=== PATIENT | female | born 1980 | race Caucasian/White ===

== ENCOUNTER 2018-02-11 22:11 | Emergency (ER) | payer SELFPAY ==
[2018-02-11 22:16] VITALS: BP 159/96
--- NOTE | 2018-02-12 13:17 | EDM.PDOC ---
ED HPI GENERAL MEDICAL PROBLEM - General Chief Complaint: ENT Problem Stated Complaint: nosebleed Time Seen by Provider: 02/11/18 22:25 Source of Information: Reports: Patient History Limitations: Reports: No Limitations - History of Present Illness INITIAL COMMENTS - FREE TEXT/NARRATIVE: PtEdward developed onset of epistaxis from both nares. Denies any trauma. She states that she has been experiencing issues with epistaxis more recently lately, but states that it stops on its own. Bleeding has been present over the past 45 min. 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: Musculoskeletal History: Reports: Back Pain, Chronic, Neck Pain, Chronic Psychiatric History: Reports: ADD, Anxiety, Depression Oncologic (Cancer) History: Reports: Hodgkin's Lymphoma Dermatologic History: Reports: Other (See Below) Other Dermatologic History: staff infection on back of head and upper neck Social & Family History - Family History Family Medical History: Noncontributory - Tobacco Use Smoking Status *Q: Former Smoker Used Tobacco, but Quit: Yes Month/Year Tobacco Last Used: 4 - Caffeine Use Caffeine Use: Reports: Coffee Other Caffeine Use: 2-3 cups daily ED ROS GENERAL - Review of Systems Review Of Systems: See Below Constitutional: Reports: No Symptoms HEENT: Reports: Nosebleed Respiratory: Reports: No Symptoms Cardiovascular: Reports: No Symptoms Endocrine: Reports: No Symptoms GI/Abdominal: Reports: No Symptoms : Reports: No Symptoms Musculoskeletal: Reports: No Symptoms Skin: Reports: No Symptoms Neurological: Reports: No Symptoms Psychiatric: Reports: No Symptoms Hematologic/Lymphatic: Reports: No Symptoms Immunologic: Reports: No Symptoms ED EXAM, GENERAL - Physical Exam Exam: See Below Exam Limited By: No Limitations General Appearance: Alert, WD/WN, No Apparent Distress Nose: Other (No active bleeding noted. small area of previous bleeding noted in L nare was cauterized with silver nitrate.) Head: Atraumatic, Normocephalic Neck: Normal Inspection, Supple, Non-Tender, Full Range of Motion Respiratory/Chest: No Respiratory Distress, Lungs Clear, Normal Breath Sounds, No Accessory Muscle Use, Chest Non-Tender Cardiovascular: Normal Peripheral Pulses, Regular Rate, Rhythm, No Edema, No Gallop, No JVD, No Murmur, No Rub Course - Vital Signs Last Recorded V/S: Last Vital Signs Temp 36.8 C 02/11/18 22:15 Pulse 89 02/11/18 22:15 Resp 20 02/11/18 22:15 BP 159/96 H 02/11/18 22:15 Pulse Ox 98 02/11/18 22:15 Departure - Departure Time of Disposition: 23:15 Disposition: Home, Self-Care 01 Condition: Good Clinical Impression: Epistaxis - Discharge Information Instructions: Nosebleed, Adult Referrals: Chary Mccartney BODY SPECIALIST [Primary Care Provider] - Forms: ED Department Discharge Additional Instructions: If you are continuing to have nosebleeds, follow-up in clinic for referral to ENT. Return to ER if you have any recurrence of your bleeding tonight that does not stop in 30 min. - Assessment/Plan Plan: If you are continuing to have nosebleeds, follow-up in clinic for referral to ENT. Return to ER if you have any recurrence of your bleeding tonight that does not stop in 30 min.
== END 2018-02-11 22:25 | disposition home or self-care (01) ==
LOC: VM.ED 22:11
DX: R04.0 Epistaxis (principal); Z87.891 Personal history of nicotine dependence
CPT/HCPCS: 30901; 30905; 99283; 99283-GF-25

== ENCOUNTER 2022-10-23 11:56 | Emergency (ER) | payer BC, MEDICAID ==
[2022-10-23] MEDS ORDERED: Take Home: Acetaminophen/Codeine 300 MG/30 MG, 5 Tab Pack PO ONE (12:28)
[2022-10-23] MEDS ORDERED: Take Home: Amoxicillin/Clavulanate K 875-125 MG Tab, 2 Tab Pack PO ONE (12:28)
[2022-10-23] MEDS ORDERED: valACYclovir 1,000 MG Tab PO SCH (13:00)
[2022-10-23 20:25] VITALS: BP 127/84; PULSE 92
== END 2022-10-23 12:40 | disposition home or self-care (01) ==
LOC: VM.ED 11:56
CPT/HCPCS: 99283; A9270

== ENCOUNTER 2023-03-12 09:17 | Emergency (ER) | payer MEDICAID ==
[2023-03-12] MEDS ORDERED: Sodium Chloride 0.9% 10 ML Syringe FLUSH PRN (09:40)
[2023-03-12] MEDS ORDERED: Lidocaine 1% 30 ML SDV INJECT ONE (09:50)
[2023-03-12] MEDS ORDERED: cefTRIAXone 2 GM Vial IVPUSH ONE (09:53)
[2023-03-12 10:05] LABS: HEMATOCRIT 42.5 % (33.0-47.0); HEMOGLOBIN 14.2 g/dL (12.0-16.0); MEAN CORPUSCULAR HEMOGLOBIN 28.9 pg (26.0-32.0); MEAN CORPUSCULAR HGB CONC 33.4 g/dL (32.0-36.0); MEAN CORPUSCULAR VOLUME 86.4 fL (78.0-93.0); PLATELET COUNT,PLT 438 x10^3/uL (130-400); RED BLOOD CELL COUNT 4.92 x10^6/uL (4.00-5.50)
[2023-03-12 10:09] LABS: WHITE BLOOD CELL COUNT,WBC 21.8 x10^3/uL (4.0-10.0)
[2023-03-12] MEDS ORDERED: cefTRIAXone 1 GM Vial IVPUSH ONE (10:11)
[2023-03-12 10:27] LABS: LACTIC ACID 1.4 mmol/L (0.4-2.0)
[2023-03-12 10:30] LABS: BAND PERCENT MAN 1 % (0-6); LYMPHOCYTES ABSOLUTE MAN 4.1 x10^3/uL (1.0-4.8); LYMPHOCYTES PERCENT MAN 18 % (25-50); MONOCYTES ABSOLUTE MAN 1.5 x10^3/uL (0.0-0.8); MONOCYTES PERCENT MAN 7 % (2-11); NEUTROPHILS ABSOLUTE MAN 16.1 x10^3/uL (1.8-7.7); PLATELET COUNT ESTIMATE INCREASED; SEG NEUTROPHILS PERCENT MAN 73 % (50-80); TARGET CELLS 1+ SLIGHT
[2023-03-12 10:34] LABS: A/G RATIO 0.64; ALANINE AMINOTRANSFERASE,ALT 43 U/L (14-59); ALBUMIN 2.9 g/dL (3.4-5.0); ALKALINE PHOSPHATASE 76 U/L (46-116); ASPARTATE AMNIOTRANSFERASE,AST 12 U/L (15-37); BILIRUBIN TOTAL 0.2 mg/dL (0.2-1.0); BLOOD UREA NITROGEN,BUN 17 mg/dL (7-18); C-REACTIVE PROTEIN 0.46 mg/dL (<=0.30); CARBON DIOXIDE,CO2 32 mmol/L (21-32); CHLORIDE,CL 100 mmol/L (98-107); CREATININE 0.8 mg/dL (0.55-1.02); ESTIMATED GFR 95 mL/min (>=60); GLUCOSE RANDOM 89 mg/dL (70-99); PROTEIN TOTAL,TP 7.4 g/dL (6.4-8.2); SODIUM,NA 140 mmol/L (136-145)
[2023-03-12] MEDS ORDERED: Take Home: Acetaminophen/HYDROcodone 325-5 MG, 5 Tab Pack PO ONE (10:35)
[2023-03-12 10:38] LABS: CALCIUM 8.6 mg/dL (8.5-10.1)
[2023-03-12] MEDS ORDERED: Morphine 4 MG/ML Syringe IVPUSH ONE (10:52)
[2023-03-12 18:46] VITALS: BP 150/96; PULSE 113
== END 2023-03-12 11:25 | disposition home or self-care (01) ==
LOC: VM.ED 09:17
DX: L02.512 Cutaneous abscess of left hand (principal); L03.114 Cellulitis of left upper limb; Z79.899 Other long term (current) drug therapy; Z86.16 Personal history of COVID-19
CPT/HCPCS: 10060; 36415; 80053; 83605; 85025; 86140; 87070; 87075; 87077; 87186; 96365; 96375; 99283; 99283-25; A9270-GY; J0696; J2270; J3370; J3490; J7050